=== PATIENT | female | born 1960 | race Caucasian/White ===

== ENCOUNTER 2017-10-21 12:18 | Inpatient (IN) | payer OTHER ==
[2017-10-21] MEDS: NICOTINE (14 MG/24 HR) PATCH TRANSDERM (13:00)
[2017-10-21 13:23] LABS: ADD MAN DIFF? NO
[2017-10-21 13:28] LABS: ABNORMAL IP MESSAGE 1; BASOPHILS % 0.2 % (0.0-2.0); EOSINOPHILS % 0.2 % (0.0-7.0); HEMATOCRIT 38.4 % (37.0-47.0); HEMOGLOBIN 13.2 g/dl (12.0-16.0); LYMPHOCYTES # 2.4 10^3/ul (0.8-2.9); LYMPHOCYTES % 14.1 % (15.0-51.0); MEAN CORPUSCULAR HEMOGLOBIN 29.5 pg (29.0-33.0); MEAN CORPUSCULAR HGB CONC 34.4 g/dl (32.0-37.0); MEAN CORPUSCULAR VOLUME 85.9 fl (82.0-101.0); MONOCYTE # 1.7 10^3/ul (0.3-0.9); MONOCYTES % 10.2 % (0.0-11.0); NEUTROPHIL # 12.4 10^3/ul (1.6-7.5); NEUTROPHILS % 74.4 % (39.0-77.0); PLATELET COUNT 407 10^3/UL (140-415); RED BLOOD COUNT 4.47 10^6/ul (4.20-5.40); RED CELL DISTRIBUTION WIDTH 13.4 % (11.5-14.5)
[2017-10-21 13:28] LABS: WHITE BLOOD COUNT 16.6 10^3/ul (4.8-10.8)
[2017-10-21 13:30] LABS: POSITIVE DIFF @See below
[2017-10-21] MEDS: ONDANSETRON 4 MG INJ IV (13:31)
[2017-10-21] MEDS: SOD CHLORIDE 0.9% 1,000 ML IV ×2 (13:31→15:42)
[2017-10-21] MEDS: HYDROmorphONE 1 MG/ML SYG IV (13:31)
[2017-10-21 13:48] LABS: ALANINE AMINOTRANSFERASE 55 IU/L (13-69); ALBUMIN 3.9 g/dl (3.3-4.9); ALBUMIN/GLOBULIN RATIO 1.14; ALKALINE PHOSPHATASE 289 IU/L (42-121); ANION GAP 16 (8-16); ASPARTATE AMINO TRANSFERASE 48 IU/L (15-46); BILIRUBIN,INDIRECT 0.4 mg/dl (0-1.1); BILIRUBIN,TOTAL 0.4 mg/dl (0.2-1.3); BLOOD UREA NITROGEN 21 mg/dl (7-20); CALCIUM 9.2 mg/dl (8.4-10.2); CARBON DIOXIDE 24 mmol/L (21-31); CHLORIDE 100 mmol/L (97-110); CREATININE 0.64 mg/dl (0.44-1.00); GLUCOSE 106 mg/dl (70-220); POTASSIUM 3.3 mmol/L (3.5-5.1); SODIUM 137 mmol/L (135-144); TOTAL PROTEIN 7.3 g/dl (6.1-8.1)
[2017-10-21] MEDS ORDERED: ONDANSETRON 4 MG INJ IV ×3 (16:00→19:00)
[2017-10-21] MEDS ORDERED: ACETAMINOPHEN 325 MG TAB PO ×3 (16:00→19:00)
[2017-10-21] MEDS ORDERED: NACL 0.9% 3 ML SYG IV (19:00)
[2017-10-21] MEDS ORDERED: BISACODYL (EC) 5 MG TAB PO (19:00)
[2017-10-21] MEDS ORDERED: NA PHOSPHATE/BIPHOS 133 ML ENEMA PR (19:00)
[2017-10-21] MEDS ORDERED: LORAZEPAM 1 MG TAB PO (19:00)
[2017-10-21] MEDS ORDERED: ACETAMINOPHEN 650 MG SUPP PR (19:00)
[2017-10-21] MEDS ORDERED: ZOLPIDEM 5 MG TAB PO (19:00)
[2017-10-21] MEDS ORDERED: DOCUSATE SODIUM 100 MG CAP PO (19:00)
[2017-10-21] MEDS ORDERED: MAGNESIUM HYDROXIDE 30ML CUP PO (19:00)
[2017-10-21] MEDS ORDERED: ONDANSETRON 4 MG TAB PO (19:00)
[2017-10-21] MEDS ORDERED: BISACODYL 10 MG SUPP PR (19:00)
[2017-10-21] MEDS ORDERED: HYDROCODONE/APAP (10/325) TAB PO (19:00)
[2017-10-21] MEDS: morphine 2 MG INJ IV (20:02)
[2017-10-21 20:10] LABS: ADD UMIC YES; UR ASCORBIC ACID NEGATIVE (NEGATIVE); UR BILIRUBIN (Dip) NEGATIVE (NEGATIVE); UR BLOOD (Dip) 1+ mg/dL (NEGATIVE); UR CLARITY CLEAR (CLEAR); UR COLOR YELLOW (YELLOW); UR GLUCOSE (Dip) NEGATIVE (NEGATIVE); UR KETONES (Dip) NEGATIVE (NEGATIVE); UR LEUKOCYTE ESTERASE (Dip) NEGATIVE Leu/ul (NEGATIVE); UR MUCUS FEW /HPF (NONE SEEN); UR NITRITE (Dip) NEGATIVE (NEGATIVE); UR RBC 1 /HPF (0-5); UR SPECIFIC GRAVITY (Dip) 1.016 (1.003-1.030); UR SQUAMOUS EPITHELIAL CELL FEW /HPF (FEW); UR TOTAL PROTEIN (Dip) NEGATIVE (NEGATIVE); UR UROBILINOGEN (Dip) 1+ mg/dL (NEGATIVE); UR WBC 2 /HPF (0-5)
[2017-10-21] MEDS: morphine (ER) 15 MG TAB PO (21:24)
[2017-10-21] MEDS: NS + KCL 20 MEQ 1,000 ML IV (21:25)
[2017-10-21] MEDS: CEFTRIAXONE 1 GM/50 ML (PMX) 50 ML IVPB (21:26)
[2017-10-22] MEDS ORDERED: DEXAMETHASONE 4 MG TAB PO
[2017-10-22] MEDS ORDERED: PANTOPRAZOLE (EC) 40 MG TAB PO (06:00)
[2017-10-22] MEDS ORDERED: CITALOPRAM 20 MG TAB PO (09:00)
== END 2017-10-21 22:53 | disposition left against medical advice (07) | DRG 841 ==
LOC: E/R 12:18 → PP2 13:38
DX: C90.00 Multiple myeloma not having achieved remission (principal); N39.0 Urinary tract infection, site not specified; E87.6 Hypokalemia; D72.829 Elevated white blood cell count, unspecified; G89.29 Other chronic pain; Z72.0 Tobacco use
CPT/HCPCS: 71045; 80053; 81001; 85025; 87040; 87086; 96374; 96375; 99285-25